=== PATIENT | male | born 1970 | race Hispanic/Latino ===

== ENCOUNTER 2018-07-08 12:40 | Emergency (ER) | payer OTHER ==
[~2018-07-08] VITALS: Ht 177.8 cm; Wt 63.5 kg
[2018-07-08] MEDS ORDERED: IPRATROPIUM/ALBUTEROL SULFATE 3 ML SOLUTION IH ONE ×2 (12:45→14:57)
[2018-07-08] MEDS ORDERED: ACETAMINOPHEN 325 MG TAB ONE ×2 (14:24→14:27)
[2018-07-08] MEDS ORDERED: PREDNISONE 20 MG TABLET ONE (14:24)
[2018-07-08 14:33] LABS: BASOPHILS % (AUTO) 0.7 % (0.0-5.0); EOSINOPHILS % (AUTO) 4.9 % (0.0-8.0); HEMATOCRIT 41.6 % (42-54); LYMPHOCYTES % (AUTO) 21.5 % (21.0-51.0); MEAN CORPUSCULAR HGB CONC 33.4 g/dL (32.0-36.0); MEAN CORPUSCULAR VOLUME 77.7 fL (79-99); MONOCYTES % (AUTO) 10.8 % (3.0-13.0); NEUTROPHILS % (AUTO) 62.1 % (40.0-77.0); PLATELET COUNT (AUTO) 159 K/uL (130-400); RED BLOOD CELL COUNT(AUTO) 5.35 MIL/uL (4.50-6.20); RED CELL DISTRIBUTION WIDTH 16.9 % (11.0-15.5); WHITE BLOOD COUNT (AUTO) 9.4 K/uL (4.8-10.8)
[2018-07-08 14:43] LABS: CREATININE 0.9 mg/dL (0.5-1.5); POTASSIUM 3.5 mmol/L (3.5-5.1)
[2018-07-08 14:48] LABS: ALBUMIN 4.1 g/dL (3.5-5.0); BILIRUBIN,TOTAL 0.6 mg/dL (0.2-1.0); TOTAL PROTEIN, SERUM 7.9 g/dL (6.0-8.3)
[2018-07-08] MEDS ORDERED: TERBUTALINE SULFATE VIAL 1MG/ML SQ SCH (15:00)
[2018-07-08] MEDS ORDERED: CEFTRIAXONE SODIUM 1 GM ONE (15:26)
[2018-07-08] MEDS ORDERED: AZITHROMYCIN 250 MG TABLET PO ONE (15:26)
== END 2018-07-08 15:53 | disposition home or self-care (01) ==
LOC: EDH 12:40 → EEVIPCON 12:40 → EDH 15:53
DX: J45.901 Unspecified asthma with (acute) exacerbation (principal)
CPT/HCPCS: 36415; 71045; 80053; 85025; 87040 ×2; 93005; 94640 ×2; 96372; 96374; 99285; J0696; J3105